=== PATIENT | female | born 1955 | race Caucasian/White ===

== ENCOUNTER 2017-09-29 10:33 | Day surgery (SDC) | payer BC, MEDICARE, OTHER ==
[~2017-09-29 10:33] MED LIST: Cefuroxime 10 MG/ML SYRINGE EYERT SCH; Lidocaine 1% PF 2 ML SDV INJECT SCH; Pilocarpine 4% Ophth Soln 15 ML Bot EYERT SCH
[2017-09-29] MEDS: Ofloxacin 0.3% Ophth Soln 5 ML Bottle EYERT SCH ×3 (11:46→13:19)
[2017-09-29] MEDS: Brimonidine 0.2% Ophth Soln 5 ML Bottle EYERT SCH ×3 (11:51→13:19)
[2017-09-29] MEDS: Phenylephrine 2.5% Ophth Soln 2 ML Bot EYERT SCH ×5 (11:59→13:04)
--- NOTE | 2017-09-29 12:09 | PCM.PREANE ---
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, 2008) Other: Reports: Diabetes (borderline with diet controlled), Sinus Problem, Neck Pain (bulging disk in neck) - Physical Assessment NPO Status Date: 09/28/17 NPO Status Time: 23:00 Pulse: 81 O2 Sat by Pulse Oximetry: 97 Respiratory Rate: 16 Blood Pressure: 138/88 Temperature: 36.6 C Vital Signs: Last Vital Signs Temp 36.6 C 09/29/17 11:40 Pulse 81 09/29/17 11:40 Resp 16 09/29/17 11:40 BP 138/88 09/29/17 11:40 Pulse Ox 97 09/29/17 11:40 Height: 1.68 m Weight: 94.347 kg ASA Class: 3 Mental Status: Alert & Oriented x3 Airway Class: Mallampati = 2 Dentition: Reports: Dentures (upper), Missing Tooth/Teeth Thyro-Mental Finger Breadths: 3 Mouth Opening Finger Breadths: 3 ROM/Head Extension: Full Lungs: Clear to Auscultation, Normal Respiratory Effort Cardiovascular: Regular Rate, Regular Rhythm, No Murmurs - Allergies Allergies/Adverse Reactions: Allergies Allergy/AdvReac Type Severity Reaction Status Date / Time adhesive Allergy Hives Verified 09/28/17 14:19 bupropion [From Wellbutrin] Allergy Other Verified 09/28/17 14:19 prednisone Allergy Shortness Verified 09/28/17 14:19 of Breath Sulfa (Sulfonamide Allergy Hives Verified 09/28/17 14:19 Antibiotics) doxycycline AdvReac Nausea Verified 09/28/17 14:19 fluoxetine AdvReac Seizure Verified 09/28/17 14:19 quetiapine AdvReac Confusion Verified 09/28/17 14:19 seasonal allergies Allergy Other Uncoded 09/28/17 14:19 zinc acetate dihydrate Allergy Rash Uncoded 09/28/17 14:19 - Anesthesia Plan Pre-Op Medication Ordered: Beta Cameron Beta Cameron: Metoprolol Med Last Dose Date: 09/28/17 Med Last Dose Time: 20:00 - Acknowledgements Anesthesia Type Planned: MAC Pt an Appropriate Candidate for the Planned Anesthesia: Yes Alternatives and Risks of Anesthesia Discussed w Pt/Guardian: Yes Pt/Guardian Understands and Agrees with Anesthesia Plan: Yes PreAnesthesia Questionnaire HEENT History: Reports: Allergic Rhinitis Cardiovascular History: Reports: Hypertension Respiratory History: Reports: Asthma, COPD Gastrointestinal History: Reports: Inflammatory Bowel Disease, Other (See Below) Other Gastrointestinal History: ulcerative colitis Genitourinary History: Reports: Renal Calculus, UTI, Recurrent Other Genitourinary History: bladder sling [employer] History: Reports: None Musculoskeletal History: Reports: Back Pain, Chronic, Neck Pain, Chronic, Other (See Below), Osteoarthritis Other Musculoskeletal History: muscle cramps Neurological History: Reports: Seizure Psychiatric History: Reports: Anxiety, Depression Oncologic (Cancer) History: Reports: Other (See Below) Other Oncologic History: carcenoid cancer - Infectious Disease History Infectious Disease History: Reports: C-Difficile, Hepatitis C Other Infectious Disease History: No definitive diagnosis on Hep C. - Past Surgical History HEENT Surgical History: Reports: Adenoidectomy, Tonsillectomy GI Surgical History: Reports: Appendectomy, Cholecystectomy, Hernia, Abdominal Female Surgical History: Reports: Hysterectomy, Salpingo-Oophorectomy Musculoskeletal Surgical History: Reports: Hip Replacement, Other (See Below) Other Musculoskeletal Surgeries/Procedures:: fusion of 7-9 of thoracic vertebrae - SUBSTANCE USE Smoking Status *Q: Unknown Ever Smoked Tobacco Use Within Last Twelve Months: Cigarettes Recreational Drug Use History: No - HOME MEDS Home Medications: Home Meds Albuterol [IJD: Ventolin HFA] 2 puff INH Q4H PRN 11/10/16 [History] Amitriptyline [Elavil] 25 mg PO BEDTIME 11/10/16 [History] Ascorbic Acid [Vitamin C] 1,000 mg PO DAILY 11/10/16 [History] Losartan [Cozaar] 50 mg PO DAILY 11/10/16 [History] Mesalamine [Lialda] 4.8 g PO DAILY 11/10/16 [History] SUMAtriptan [Imitrex] 6 mg SUBCUT ONETIME PRN 11/10/16 [History] SUMAtriptan [Imitrex] 100 mg PO Q2H PRN 11/10/16 [History] Aspirin 81 mg PO DAILY 06/18/17 [History] Budesonide/Formoterol [Symbicort 160-4.5 MCG] 2 puff INH BID 06/18/17 [History] Cholecalciferol (Vitamin D3) [Vitamin D3] 1,000 unit PO DAILY 06/18/17 [History] Doxylamine Succinate [Unisom] 25 mg PO BEDTIME PRN 06/18/17 [History] Hydrochlorothiazide 25 mg PO DAILY 06/18/17 [History] Melatonin 5 mg PO BEDTIME PRN 06/18/17 [History] Metoprolol Succinate [Toprol XL] 100 mg PO DAILY 06/18/17 [History] amLODIPine [Norvasc] 5 mg PO DAILY 06/23/17 [History] atorvaSTATin [Lipitor] 40 mg PO BEDTIME 06/23/17 [History] Potassium 99 mg PO DAILY 09/28/17 [History] - CURRENT (IN HOUSE) MEDS Current Meds: Current Medications Brimonidine Tartrate (Alphagan 0.2% Ophth Soln) 0 ml EYERT ASDIRECTED BETI Stop: 09/29/17 18:00 Last Admin: 09/29/17 11:51 Dose: 1 drop Cefuroxime Sodium (Zinacef) 0 mg EYERT ASDIRECTED BETI Stop: 09/29/17 18:00 Lidocaine HCl (Xylocaine-Mpf 1%) 10 ml INJECT ASDIRECTED BETI Stop: 09/29/17 18:00 Ofloxacin (Ocuflox 0.3% Ophth Soln) 0 ml EYERT ASDIRECTED BETI Stop: 09/29/17 18:00 Last Admin: 09/29/17 11:46 Dose: 1 drop Phenylephrine HCl (Jerod-Synephrine 2.5% Ophth Soln) 0 ml EYERT ASDIRECTED BETI Stop: 09/29/17 18:00 Last Admin: 09/29/17 11:59 Dose: 1 drop Pilocarpine HCl (Pilocar 4% Ophth Soln) 0 ml EYERT ASDIRECTED BETI Stop: 09/29/17 18:00 Tetracaine HCl (Tetracaine 0.5% Steri-Unit Corin) 0 ml EYERT ASDIRECTED BETI Stop: 09/29/17 18:00 Tropicamide (Mydriacyl 1% Ophth Soln) 0 ml EYERT ASDIRECTED BETI Stop: 09/29/17 18:00
[2017-09-29] MEDS: Tetracaine HCl/PF 0.5% 4 ML Bottle EYERT SCH ×2 (12:57→13:12)
--- NOTE | 2017-09-29 13:22 | PCM48HPAN ---
Post Anesthesia Note - EVALUATION WITHIN 48HRS OF ANESTHETIC Vital Signs in Normal Range: Yes Patient Participated in Evaluation: Yes Respiratory Function Stable: Yes Airway Patent: Yes Cardiovascular Function Stable: Yes Hydration Status Stable: Yes Pain Control Satisfactory: Yes Nausea and Vomiting Control Satisfactory: Yes Mental Status Recovered: Yes
[2017-09-29 13:45] VITALS: BP 135/81
== END 2017-09-29 13:30 | disposition home or self-care (01) ==
LOC: JD.SDS 10:33
PROVIDERS: ATTEND Ophthalmology
DX: H25.813 Combined forms of age-related cataract, bilateral (principal); H25.013 Cortical age-related cataract, bilateral; H25.043 Posterior subcapsular polar age-related cataract, bilateral; H02.831 Dermatochalasis of right upper eyelid; H02.834 Dermatochalasis of left upper eyelid; H40.053 Ocular hypertension, bilateral; H16.223 Keratoconjunctivitis sicca, not specified as Sjogren's, bilateral; E11.36 Type 2 diabetes mellitus with diabetic cataract; M19.90 Unspecified osteoarthritis, unspecified site; J45.909 Unspecified asthma, uncomplicated; M79.7 Fibromyalgia; G43.909 Migraine, unspecified, not intractable, without status migrainosus; G89.29 Other chronic pain; M54.2 Cervicalgia; Z87.891 Personal history of nicotine dependence; Z86.73 Personal history of transient ischemic attack (TIA), and cerebral infarction without residual deficits; Z87.440 Personal history of urinary (tract) infections; Z79.899 Other long term (current) drug therapy; Z79.82 Long term (current) use of aspirin; Z79.51 Long term (current) use of inhaled steroids; Z88.2 Allergy status to sulfonamides; Z88.1 Allergy status to other antibiotic agents; Z88.8 Allergy status to other drugs, medicaments and biological substances; Z98.1 Arthrodesis status; Z90.89 Acquired absence of other organs; Z90.710 Acquired absence of both cervix and uterus; Z98.890 Other specified postprocedural states
CPT/HCPCS: 66984; C1780; J0697; A9270-GY

== ENCOUNTER → 2017-10-20 | Day surgery (SDC) | payer BC, MEDICARE, OTHER ==
[~2017-10-20] MED LIST changes: +Cefuroxime 10 MG/ML SYRINGE EYELF SCH; -Cefuroxime 10 MG/ML SYRINGE EYERT SCH; +Pilocarpine 4% Ophth Soln 15 ML Bot EYELF SCH; -Pilocarpine 4% Ophth Soln 15 ML Bot EYERT SCH
[2017-10-20] MEDS: Ofloxacin 0.3% Ophth Soln 5 ML Bottle EYELF SCH ×3 (07:35→09:32)
[2017-10-20] MEDS: Brimonidine 0.2% Ophth Soln 5 ML Bottle EYELF SCH ×3 (07:40→09:32)
[2017-10-20] MEDS: Phenylephrine 2.5% Ophth Soln 2 ML Bot EYELF SCH ×5 (07:43→09:10)
[2017-10-20] MEDS: Tetracaine HCl/PF 0.5% 4 ML Bottle EYELF SCH ×2 (08:34→09:22)
[2017-10-20 16:54] VITALS: BP 142/71
== END ==
LOC: JD.SDS 07:18
PROVIDERS: ATTEND Ophthalmology
DX: H25.042 Posterior subcapsular polar age-related cataract, left eye (principal); E11.36 Type 2 diabetes mellitus with diabetic cataract; H02.831 Dermatochalasis of right upper eyelid; H02.834 Dermatochalasis of left upper eyelid; H16.103 Unspecified superficial keratitis, bilateral; H16.223 Keratoconjunctivitis sicca, not specified as Sjogren's, bilateral; H52.31 Anisometropia; G43.909 Migraine, unspecified, not intractable, without status migrainosus; M79.7 Fibromyalgia; E78.00 Pure hypercholesterolemia, unspecified; J45.909 Unspecified asthma, uncomplicated; M19.90 Unspecified osteoarthritis, unspecified site; Z98.41 Cataract extraction status, right eye; Z96.1 Presence of intraocular lens; Z90.710 Acquired absence of both cervix and uterus; Z90.49 Acquired absence of other specified parts of digestive tract; Z98.890 Other specified postprocedural states; Z88.8 Allergy status to other drugs, medicaments and biological substances; Z88.2 Allergy status to sulfonamides; Z79.82 Long term (current) use of aspirin; Z79.52 Long term (current) use of systemic steroids; Z79.899 Other long term (current) drug therapy; Z87.891 Personal history of nicotine dependence
CPT/HCPCS: 66984; C1780; J0697; A9270-GY

== ENCOUNTER → 2020-03-20 | Day surgery (SDC) | payer MEDICARE, OTHER ==
[~2020-03-20] MED LIST changes: -Cefuroxime 10 MG/ML SYRINGE EYELF SCH; +Lactated Ringers 1,000 ML IV SCH; -Lidocaine 1% PF 2 ML SDV INJECT SCH; +Lidocaine 1%/Sod Bicarbonate in NS 8.4% 1 ML Syringe IDERM PRN; +Phenylephrine 2.5% Ophth Soln 15 ML Bot EYERT SCH; -Pilocarpine 4% Ophth Soln 15 ML Bot EYELF SCH; +Sodium Chloride 0.9% 10 ML Syringe FLUSH PRN
[2020-03-20] MEDS: Brimonidine 0.2% Ophth Soln 5 ML Bottle EYERT SCH ×4 (09:07→10:18)
[2020-03-20] MEDS: Phenylephrine 2.5% Ophth Soln 2 ML Bot EYERT SCH ×3 (09:09→09:22)
[2020-03-20] MEDS: Tropicamide 1% Ophth Soln 15 ML Bottle EYERT SCH ×3 (09:11→09:27)
[2020-03-20 09:40] VITALS: BP 132/68; PULSE 70
== END ==
LOC: JD.SDS 09:03
PROVIDERS: ATTEND Ophthalmology
DX: E11.36 Type 2 diabetes mellitus with diabetic cataract (principal); H26.491 Other secondary cataract, right eye; H02.834 Dermatochalasis of left upper eyelid; H02.831 Dermatochalasis of right upper eyelid; H16.103 Unspecified superficial keratitis, bilateral; H16.223 Keratoconjunctivitis sicca, not specified as Sjogren's, bilateral; F41.9 Anxiety disorder, unspecified; J45.909 Unspecified asthma, uncomplicated; I10 Essential (primary) hypertension; E78.00 Pure hypercholesterolemia, unspecified; Z87.891 Personal history of nicotine dependence; Z79.899 Other long term (current) drug therapy; Z79.82 Long term (current) use of aspirin; Z96.1 Presence of intraocular lens; Z88.8 Allergy status to other drugs, medicaments and biological substances; Z88.2 Allergy status to sulfonamides

== ENCOUNTER 2021-12-17 08:25 | Day surgery (SDC) | payer MEDICARE, OTHER ==
[2021-12-17] MEDS: Lactated Ringers 1,000 ML IV SCH ×2 (08:00→13:16)
[~2021-12-17 08:25] MED LIST changes: +Ketorolac 30 MG/ML SDV ONE; -Lactated Ringers 1,000 ML IV SCH; +Lidocaine 1% 4 ML ONE; +Midazolam 1 MG/ML 2 ML SDV ONE; +Ondansetron 4 MG/2 ML SDV ONE; -Phenylephrine 2.5% Ophth Soln 15 ML Bot EYERT SCH; +Propofol 200 MG/20 ML SDV ONE; +Rocuronium 50 MG/5 ML Vial ONE; +Scopolamine 1.5 MG Transdermal Patch TOP ONE; +Sodium Chloride 0.9% 10 ML Syringe FLUSH SCH; +fentaNYL 250 MCG/5 ML SDV ONE
[2021-12-17] MEDS ORDERED: Lidocaine 1% with EPINEPHrine 1:100,000 20 ML MDV ONE (08:28)
[2021-12-17] MEDS ORDERED: Sodium Chloride 0.9% 50 ML SDV ONE (08:28)
[2021-12-17] MEDS ORDERED: ceFAZolin 1 GM Vial ONE (08:29)
[2021-12-17] MEDS ORDERED: ePHEDrine 50 MG/ML SDV ONE (11:01)
[2021-12-17] MEDS ORDERED: Labetalol 100 MG/20 ML MDV ONE (11:36)
[2021-12-17] MEDS ORDERED: Acetaminophen/oxyCODONE 325-5 MG Tab PO PRN (11:37)
[2021-12-17] MEDS ORDERED: Ondansetron 4 MG/2 ML SDV IVPUSH PRN (11:37)
[2021-12-17] MEDS ORDERED: fentaNYL 100 MCG/2 ML SDV IVPUSH PRN (11:54)
[2021-12-17] MEDS ORDERED: Prochlorperazine 10 MG/2 ML SDV IVPUSH ONE (12:04)
[2021-12-17] MEDS ORDERED: Ketorolac 30 MG/ML SDV IVPUSH ONE (15:00)
[2021-12-17 15:05] VITALS: BP 100/69; PULSE 68
[2021-12-17] MEDS ORDERED: Ibuprofen 600 MG Tab PO PRN (21:00)
== END 2021-12-17 14:55 | disposition home or self-care (01) ==
LOC: JD.SDS 08:25
PROVIDERS: ATTEND Obstetrics & Gynecology
DX: N99.3 Prolapse of vaginal vault after hysterectomy (principal); J45.909 Unspecified asthma, uncomplicated; G43.909 Migraine, unspecified, not intractable, without status migrainosus; M79.7 Fibromyalgia; J44.9 Chronic obstructive pulmonary disease, unspecified; E66.9 Obesity, unspecified; G62.9 Polyneuropathy, unspecified; Z98.890 Other specified postprocedural states; Z88.8 Allergy status to other drugs, medicaments and biological substances; Z88.2 Allergy status to sulfonamides; Z88.1 Allergy status to other antibiotic agents; Z88.5 Allergy status to narcotic agent; Z91.030 Bee allergy status; Z79.899 Other long term (current) drug therapy; Z79.82 Long term (current) use of aspirin; Z90.49 Acquired absence of other specified parts of digestive tract; Z87.891 Personal history of nicotine dependence
CPT/HCPCS: 00942; A9270-GY; J0690; J0780; J1885; J2250; J2405; J2704; J2710; J3010; J3490; J7120

== ENCOUNTER 2023-11-04 12:03 | Emergency (ER) | payer MEDICARE, OTHER ==
[2023-11-04] MEDS ORDERED: HYDROmorphone 1 MG/ML Syringe IM ONE (12:24)
[2023-11-04] MEDS ORDERED: Acetaminophen/HYDROcodone 325-5 MG Tab PO ONE (14:31)
[2023-11-04] MEDS ORDERED: Ketorolac 60 MG/2 ML SDV IM ONE (15:10)
[2023-11-04] MEDS ORDERED: HYDROmorphone 0.5 MG/0.5 ML Syringe IM ONE (15:26)
[2023-11-04] MEDS ORDERED: Ondansetron 4 MG Tab.DIS PO ONE (15:26)
[2023-11-04 16:41] VITALS: BP 162/82; PULSE 71
== END 2023-11-04 15:39 | disposition home or self-care (01) ==
LOC: JD.ED 12:03
DX: S82.091A Other fracture of right patella, initial encounter for closed fracture (principal); J44.9 Chronic obstructive pulmonary disease, unspecified; F17.210 Nicotine dependence, cigarettes, uncomplicated; Z91.048 Other nonmedicinal substance allergy status; Z88.2 Allergy status to sulfonamides; Z79.899 Other long term (current) drug therapy; Z88.8 Allergy status to other drugs, medicaments and biological substances; Z90.49 Acquired absence of other specified parts of digestive tract; W18.39XA Other fall on same level, initial encounter
CPT/HCPCS: 73564-26-LT; 73564-LT; 96372; 99283; A9270-GY; J1170; J1885

== ENCOUNTER 2023-11-11 08:00 | Day surgery (SDC) | payer MEDICARE, OTHER ==
[~2023-11-11 08:00] MED LIST changes: -Ketorolac 30 MG/ML SDV ONE; -Lidocaine 1% 4 ML ONE; -Lidocaine 1%/Sod Bicarbonate in NS 8.4% 1 ML Syringe IDERM PRN; -Midazolam 1 MG/ML 2 ML SDV ONE; -Ondansetron 4 MG/2 ML SDV ONE; -Propofol 200 MG/20 ML SDV ONE; -Rocuronium 50 MG/5 ML Vial ONE; +Ropivacaine 0.5% 5 MG/ML 30 ML SDV ONE; -Scopolamine 1.5 MG Transdermal Patch TOP ONE; +dexmedeTOMIDine HCl 200 MCG/2 ML SDV ONE; -fentaNYL 250 MCG/5 ML SDV ONE
[2023-11-11] MEDS ORDERED: fentaNYL 100 MCG/2 ML SDV ONE ×2 (08:08→10:22)
[2023-11-11] MEDS ORDERED: Midazolam 1 MG/ML 2 ML SDV ONE (08:08)
[2023-11-11] MEDS: Lactated Ringers 1,000 ML IV SCH ×2 (08:15→12:21)
[2023-11-11] MEDS ORDERED: Lidocaine 1% PF 2 ML SDV ONE (08:49)
[2023-11-11] MEDS ORDERED: EPINEPHrine 1 MG/ML SDV ONE (08:49)
[2023-11-11] MEDS ORDERED: Dexamethasone 4 MG/ML 5 ML MDV ONE (08:49)
[2023-11-11] MEDS ORDERED: Propofol 200 MG/20 ML SDV ONE ×2 (09:31→10:51)
[2023-11-11] MEDS ORDERED: ceFAZolin 2 GM Vial ONE (09:31)
[2023-11-11] MEDS ORDERED: Lidocaine 1% 6 ML ONE (09:31)
[2023-11-11] MEDS ORDERED: Ondansetron 4 MG/2 ML SDV ONE (09:53)
[2023-11-11] MEDS ORDERED: HYDROmorphone 0.5 MG/0.5 ML Syringe IVPUSH PRN (10:59)
[2023-11-11] MEDS ORDERED: fentaNYL 100 MCG/2 ML SDV IVPUSH PRN (10:59)
[2023-11-11] MEDS ORDERED: oxyCODONE 5 MG Tab PO PRN (12:22)
[2023-11-11 13:55] VITALS: BP 108/81; PULSE 68
== END 2023-11-11 13:22 | disposition home or self-care (01) ==
LOC: JD.SDS 08:00
PROVIDERS: ATTEND Orthopaedic Surgery
DX: S82.002A Unspecified fracture of left patella, initial encounter for closed fracture (principal); M25.562 Pain in left knee; J45.909 Unspecified asthma, uncomplicated; I10 Essential (primary) hypertension; J44.9 Chronic obstructive pulmonary disease, unspecified; Z87.891 Personal history of nicotine dependence; Z79.899 Other long term (current) drug therapy; Z88.2 Allergy status to sulfonamides; Z88.0 Allergy status to penicillin; X58.XXXA Exposure to other specified factors, initial encounter
CPT/HCPCS: 27524; 76000; 87641; A9270; C1713; C1769; J0171; J0690; J1100; J2250; J2405; J2704; J2795; J3010; J7120; 01392; 64447; J3490

== ENCOUNTER 2025-01-05 09:48 | Day surgery (SDC) | payer MEDICARE, OTHER ==
[~2025-01-05 09:48] MED LIST changes: -Ropivacaine 0.5% 5 MG/ML 30 ML SDV ONE; -dexmedeTOMIDine HCl 200 MCG/2 ML SDV ONE
[2025-01-05] MEDS ORDERED: Propofol 200 MG/20 ML SDV ONE ×4 (10:04→10:57)
[2025-01-05] MEDS ORDERED: Dexamethasone 4 MG/ML 5 ML MDV ONE (10:05)
[2025-01-05] MEDS ORDERED: Ondansetron 4 MG/2 ML SDV ONE (10:05)
[2025-01-05] MEDS ORDERED: Ketamine 200 MG/20 ML MDV ONE (10:05)
[2025-01-05] MEDS ORDERED: dexmedeTOMIDine HCl 200 MCG/2 ML SDV ONE (10:05)
[2025-01-05] MEDS ORDERED: Lidocaine 1% 5 ML VIAL ONE (10:05)
[2025-01-05] MEDS: Lactated Ringers 1,000 ML IV SCH (10:10)
[2025-01-05] MEDS ORDERED: HYDROmorphone 0.5 MG/0.5 ML Syringe ONE ×2 (10:30→10:58)
[2025-01-05] MEDS ORDERED: fentaNYL 100 MCG/2 ML SDV ONE ×2 (10:32→10:59)
[2025-01-05] MEDS ORDERED: ceFAZolin 2 GM Vial ONE (10:41)
[2025-01-05] MEDS ORDERED: Lactated Ringers 1,000 ML ONE (11:00)
[2025-01-05] MEDS ORDERED: Ketorolac 30 MG/ML SDV ONE (11:16)
[2025-01-05] MEDS: Lidocaine 1% 50 ML MDV INJECT ONE (11:30)
[2025-01-05] MEDS: Bupivacaine 0.25% 10 ML SDV ONE (11:30)
[2025-01-05] MEDS ORDERED: Ondansetron 4 MG/2 ML SDV IVPUSH PRN (11:48)
[2025-01-05] MEDS: HYDROmorphone 0.5 MG/0.5 ML Syringe IVPUSH PRN (11:52)
[2025-01-05] MEDS: fentaNYL 100 MCG/2 ML SDV IVPUSH PRN (12:01)
[2025-01-05] MEDS: oxyCODONE 5 MG Tab PO PRN (12:46)
[2025-01-05 14:17] VITALS: BP 134/76; PULSE 76
== END 2025-01-05 14:10 | disposition home or self-care (01) ==
LOC: JD.SDS 09:48
PROVIDERS: ATTEND Orthopaedic Surgery
DX: T84.84XA Pain due to internal orthopedic prosthetic devices, implants and grafts, initial encounter (principal); I10 Essential (primary) hypertension; J44.9 Chronic obstructive pulmonary disease, unspecified; F32.A Depression, unspecified; F41.9 Anxiety disorder, unspecified; Z87.891 Personal history of nicotine dependence; Z79.82 Long term (current) use of aspirin; Z79.899 Other long term (current) drug therapy; Z88.8 Allergy status to other drugs, medicaments and biological substances; Y83.8 Other surgical procedures as the cause of abnormal reaction of the patient, or of later complication, without mention of misadventure at the time of the procedure
CPT/HCPCS: 20680; 76000; A9270; J0665; J0690; J1100; J1885; J2003; J2405; J2704; J3010; J3490; J7120; 01400; 99100

== ENCOUNTER 2025-03-21 07:00 | Day surgery (SDC) | payer MEDICARE, OTHER ==
[2025-03-21] MEDS: Lactated Ringers 1,000 ML IV SCH (07:10)
[2025-03-21] MEDS ORDERED: Dexamethasone 4 MG/ML 5 ML MDV ONE (07:22)
[2025-03-21] MEDS ORDERED: fentaNYL 100 MCG/2 ML SDV ONE ×2 (07:22→08:03)
[2025-03-21] MEDS ORDERED: ceFAZolin 2 GM Vial ONE (07:22)
[2025-03-21] MEDS ORDERED: Ondansetron 4 MG/2 ML SDV ONE ×2 (07:22→07:27)
[2025-03-21] MEDS ORDERED: Lidocaine 2% 5 ML SDV ONE (07:22)
[2025-03-21] MEDS ORDERED: Ketorolac 30 MG/ML SDV ONE (07:22)
[2025-03-21] MEDS ORDERED: propofoL 500 MG/50 ML 0 ML ONE (07:23)
[2025-03-21] MEDS ORDERED: dexmedeTOMIDine HCl 200 MCG/2 ML SDV ONE (07:24)
[2025-03-21] MEDS: Bupivacaine 0.5% 30 ML SDV ONE (08:09)
[2025-03-21] MEDS: Lidocaine 1% 10 ML MDV ONE (08:09)
[2025-03-21] MEDS ORDERED: Propofol 200 MG/20 ML SDV ONE ×3 (08:27→09:15)
[2025-03-21] MEDS ORDERED: HYDROmorphone 0.5 MG/0.5 ML Syringe IVPUSH PRN (08:32)
[2025-03-21] MEDS ORDERED: fentaNYL 100 MCG/2 ML SDV IVPUSH PRN (08:32)
[2025-03-21] MEDS ORDERED: Ondansetron 4 MG/2 ML SDV IVPUSH PRN (08:32)
[2025-03-21] MEDS ORDERED: propofoL 500 MG/50 ML 50 ML ONE (09:14)
[2025-03-21] MEDS ORDERED: Lactated Ringers 1,000 ML ONE (09:25)
[2025-03-21] MEDS: Acetaminophen/oxyCODONE 325-5 MG Tab PO PRN (10:30)
[2025-03-21 12:38] VITALS: BP 115/52; PULSE 56
== END 2025-03-21 12:10 | disposition home or self-care (01) ==
LOC: JD.SDS 07:00
PROVIDERS: ATTEND Podiatrist Foot & Ankle Surgery
DX: M20.21 Hallux rigidus, right foot (principal); J44.9 Chronic obstructive pulmonary disease, unspecified; I10 Essential (primary) hypertension; E78.5 Hyperlipidemia, unspecified; J45.40 Moderate persistent asthma, uncomplicated; Z79.899 Other long term (current) drug therapy; Z88.8 Allergy status to other drugs, medicaments and biological substances; Z91.048 Other nonmedicinal substance allergy status; Z87.891 Personal history of nicotine dependence
CPT/HCPCS: 28750; 76000; A9270; C1713; J0665; J0690; J1100; J1885; J2003; J2405; J2704; J3010; J7120

== ENCOUNTER 2025-07-13 07:45 | Day surgery (SDC) | payer MEDICARE, OTHER ==
[~2025-07-13 07:45] MED LIST changes: +Midazolam 1 MG/ML 2 ML SDV ONE; +Ropivacaine 0.5% 5 MG/ML 30 ML SDV ONE; +fentaNYL 100 MCG/2 ML SDV ONE; +propofoL 500 MG/50 ML 50 ML IV ONE
[2025-07-13] MEDS: oxyCODONE ER 10 MG TAB.ER PO ONE (08:14)
[2025-07-13] MEDS: Lactated Ringers 1,000 ML IV SCH (08:15)
[2025-07-13] MEDS: Scopalamine 1mg/3day Transdermal Patch TOP ONE (09:04)
[2025-07-13] MEDS ORDERED: ePHEDrine 50 MG/ML SDV ONE (09:36)
[2025-07-13] MEDS ORDERED: Propofol 200 MG/20 ML SDV ONE (10:12)
[2025-07-13] MEDS ORDERED: Lactated Ringers 1,000 ML IV ONE (10:13)
[2025-07-13] MEDS: Morphine 8 MG, EPINEPHrine 0.3 MG, Cefuroxime 750 MG, Ketorolac 30 MG, Sodium Chloride ... PRN (10:34)
[2025-07-13] MEDS ORDERED: fentaNYL 100 MCG/2 ML SDV IVPUSH PRN (11:08)
[2025-07-13] MEDS ORDERED: Ondansetron 4 MG/2 ML SDV IVPUSH PRN (11:08)
[2025-07-13 15:28] VITALS: BP 115/71; PULSE 63
== END 2025-07-13 14:50 | disposition home or self-care (01) ==
LOC: JD.SDS 07:45
PROVIDERS: ATTEND Orthopaedic Surgery
DX: M17.12 Unilateral primary osteoarthritis, left knee (principal); E78.2 Mixed hyperlipidemia; I12.9 Hypertensive chronic kidney disease with stage 1 through stage 4 chronic kidney disease, or unspecified chronic kidney disease; N18.32 Chronic kidney disease, stage 3b; E66.9 Obesity, unspecified; Z88.2 Allergy status to sulfonamides; Z79.01 Long term (current) use of anticoagulants; Z79.82 Long term (current) use of aspirin; Z79.899 Other long term (current) drug therapy; Z91.030 Bee allergy status; Z91.09 Other allergy status, other than to drugs and biological substances; Z87.891 Personal history of nicotine dependence
CPT/HCPCS: 0055T; 27447; 64447; 64454; 73560; 97116; 97161; A9270; C1713; C1776; J0169; J0690; J0697; J1885; J2250; J2272; J2704; J2795; J3010; J3373; J7120; J3490